=== PATIENT | male | born 1985 | race Caucasian/White ===

== ENCOUNTER 2016-08-24 13:14 | Emergency (ER) | payer SELFPAY ==
[~2016-08-24] VITALS: Ht 182.9 cm; Wt 86.2 kg
--- NOTE | 2016-08-24 13:20 | NUR ---
PT BIB SELF, CC: NAUSEA, POSSIBLE ALCOHOL / HEROIN WITHDRAWAL. PLACED ON MONITOR. VSS. AWAITING MD ORDER.
[2016-08-24] MEDS ORDERED: IV NS 0.9% 1,000 ML ONE ×2 (13:48→15:35)
[2016-08-24] MEDS ORDERED: IV SET PRIMARY PUMP SET 1 EA INFUS.SET MC ONE (13:48)
[2016-08-24] MEDS ORDERED: ONDANSETRON HCL/PF 4 MG/2 ML VIAL ONE (13:48)
[2016-08-24] MEDS ORDERED: IV NS 0.9% 1,000 ML BAG IV ONE ×2 (14:00→16:00)
[2016-08-24] MEDS ORDERED: ONDANSETRON HCL/PF 4 MG/2 ML VIAL IVP ONE (14:00)
--- NOTE | 2016-08-24 14:10 | NUR ---
LEFT EJ #20 IV ACCESS
[2016-08-24 14:22] LABS: BASOPHILS # (AUTO) 0.1 /CMM (0.0-0.2); BASOPHILS % (AUTO) 0.5 % (0.0-2.0); EOSINOPHILS # (AUTO) 0.2 /CMM (0.0-0.7); EOSINOPHILS % (AUTO) 1.7 % (0.0-6.0); HEMATOCRIT 44 % (39-51); HEMOGLOBIN 14.3 g/dL (13.5-17.5); LYMPHOCYTES # (AUTO) 1.5 /CMM (0.8-4.8); LYMPHOCYTES % (AUTO) 10.9 % (20.0-44.0); MEAN CORPUSCULAR HEMOGLOBIN 31 PG (26.0-33.0); MEAN CORPUSCULAR HGB CONC 33 g/dl (31.0-36.0); MEAN CORPUSCULAR VOLUME 95 fL (80-96); MONOCYTES # (AUTO) 0.7 /CMM (0.1-1.30); MONOCYTES % (AUTO) 5.2 % (2.0-12.0); NEUTROPHILS # (AUTO) 10.9 /CMM (1.8-8.9); NEUTROPHILS % (AUTO) 81.7 % (43.0-81.0); PLATELET COUNT (AUTO) 378 /CMM (150-450); RDW COEFFICIENT OF VARIATION 12.2 (11.5-15.0); RED BLOOD CELL COUNT(AUTO) 4.63 MIL/uL (4.5-6.0); WHITE BLOOD COUNT (AUTO) 13.4 K/uL (4.3-11.0)
[2016-08-24 14:30] LABS: CREATININE 0.9 mg/dL (0.6-1.3); POTASSIUM 4.1 mmol/L (3.5-5.1)
--- NOTE | 2016-08-24 15:13 | NUR ---
JUAN AT BEDSIDE-
--- NOTE | 2016-08-24 15:23 | NUR ---
Social service consult requested by ED ADDIS Sinha for resources for pt. for heroin use. KEISHA met with pt. bedside. Pt. is A& O x 4. Pt. resides alone in an apartment in [place]. 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 Pt. stated he was stressed out at work and began drinking and using heroin again. Pt. has been in treatment before. Pt. seems remorseful about his drug use. Pt. was at the [facility] in [place] in 2011. Pt. is interested in going back to treatment and is on a waitlist at [facility]. Pt. states he will be able to go to [place] for inpatient in October. Pt. has no insurance. Pt. has some family support. KEISHA gave pt. resources to various Drug and Alcohol treatment programs and Detox centers. KEISHA updated ADDIS Sinha regarding resources given to pt.
[2016-08-24] MEDS ORDERED: METOCLOPRAMIDE HCL 10 MG/2 ML VIAL ONE (15:35)
--- NOTE | 2016-08-24 15:46 | NUR ---
PT TOLERATED PO FLUIDS 60 ML NO ASPIRATION. MADE AWARE
[2016-08-24] MEDS ORDERED: METOCLOPRAMIDE HCL 10 MG/2 ML VIAL IV ONE (16:00)
--- NOTE | 2016-08-24 16:03 | NUR ---
IV removed. Catheter intact and site benign. Pressure and 4x4 applied to site. No bleeding noted.Patient discharged to home in stable condition. Written and verbal after care instructions given. Patient verbalizes understanding of instruction. Prescription given to patient.
[2016-08-24 16:04] VITALS: BP 140/85
== END 2016-08-24 16:05 | disposition home or self-care (01) ==
LOC: ER 13:17
DX: F11.23 Opioid dependence with withdrawal (principal); F13.20 Sedative, hypnotic or anxiolytic dependence, uncomplicated; F10.20 Alcohol dependence, uncomplicated
CPT/HCPCS: 36415; 80048; 85025; 96361; 96374; 96375; 99284; A4606; J2405; J2765; J7030 ×2; Z7610